=== PATIENT | male | born 1990 | race Caucasian/White ===

== ENCOUNTER 2019-01-25 06:48 | Emergency (ER) | payer MEDICARE, MEDICAID, SELFPAY ==
[2019-01-25 06:52] VITALS: BP 129/83; PULSE 80; RESP 16; TEMP 37.1; O2SAT 97; BMI 24.0
--- NOTE | 2019-01-25 07:22 | ED.VIS.GEN ---
History of Present Illness Chief Complaint: General Illness Informant: Patient Onset: Days - 3 Current Severity: Moderate Maximum Severity: Moderate Narrative: Patient presents with sore throat, upper airway congestion, cough and difficulty swallowing, he feels like there is a lump in his throat when he tries to swallow. He denies any fever or chills his cough is frequent but nonproductive he has no shortness of breath, he admits to rhinorrhea but no ear pain. Past Medical History - Allergies and Home Meds Allergies/Adverse Reactions: Allergies Sulfa (Sulfonamide Antibiotics) Allergy (Verified 01/25/19 06:49) Unknown morphine Adverse Reaction (Verified 01/25/19 06:49) Hives Primary Care Physician: Care Physician,No Primary [Primary Care Provider] - Past Medical History: - - Left foot, on disability for this Surgical History: tonsillectomy, - - Right foot surgery for club foot, eustachian tubes Smoking Status: Never smoker - Family History Paternal Family History: Reports: No pertinent history Maternal Family History: Reports: No pertinent history Review of Systems All systems negative except as indicated General: Denies: Fever Eyes: Denies: Visual changes - bilaterally ENT: Reports: Rhinorrhea, Sore throat, - - As in HPI. Denies: Bilateral ear pain Cardiovascular: Denies: Chest pain Respiratory: Reports: Cough. Denies: Dyspnea, Sputum Gastrointestinal: Denies: Nausea, Vomiting Musculoskeletal: Denies: Myalgias, Arthralgias Neurological: Denies: Headache Psych: Denies: Depression Physical Exam Vital Signs/Narrative: Vital Signs Temp Pulse Resp BP Pulse Ox 01/25/19 06:52 98.7 F 80 16 129/83 H 97 General: Well nourished, Well developed, - - He appears in slight distress Head: Normocephalic ENT: - - He has upper airway congestion and rhinorrhea. His tonsils have been removed, he has an edematous uvula consistent with uvulitis, no exudates. Neck: Supple, No lymphadenopathy Cardiovascular: Regular rate Respiratory: No distress Abdomen: Soft, Nontender Back: Nontender, Normal Inspection Extremities: Nontender, No edema Skin: Normal color, No rash Diagnostic/Tx/Re-eval - Medical Decision Making Centor score is 0. Patient has obvious uvulitis I will treat him with steroids and decongestants. Otherwise I will discharge him in stable condition. ED Disposition - Plan for ED Patient: Disposition: Home or Assisted Living Diagnosis: Uvulitis Instructions: Uvulitis Prescriptions: Guaifenesin [Mucinex] 600 mg PO BID #20 tab.er.12h Prescription Printed Referrals: Hudson Mckay [[facility]] - 3-5 Days (3)
[2019-01-25] MEDS: Triamcinolone Acetonide 40 MG/ML Vial IM (07:33)
[2019-01-25 07:51] VITALS: BP 139/84; PULSE 85; RESP 16; O2SAT 97
== END 2019-01-25 07:52 | disposition home or self-care (01) ==
PROVIDERS: Emergency Provider Emergency Medicine
DX: K12.2 Cellulitis and abscess of mouth (principal)
CPT/HCPCS: 96372; 99282

== ENCOUNTER 2020-02-05 00:18 | Emergency (ER) | payer MEDICARE, MEDICAID, SELFPAY ==
[2020-02-05 00:19] VITALS: BP 134/81; PULSE 104; RESP 18; TEMP 36.4; O2SAT 95; BMI 25.5
--- NOTE | 2020-02-05 00:33 | RAD_ITS ---
STUDY: X-RAY CHEST REASON FOR EXAM: Male, 29 years old. COUGH AND SOB TECHNIQUE: Single AP portable view of the chest. COMPARISON: 05/10/2013. FINDINGS: The lungs are clear and expanded. There is no demonstrated pleural abnormality. Normal size heart. Normal mediastinum and mary ann. Normal visualized pulmonary arteries. Normal visualized aortic arch and descending thoracic aorta. Normal visualized thoracic spine. Normal visualized ribs, clavicles, and shoulders. Stimulator leads in place demonstrated. There is no demonstrated abnormality of the visualized soft tissue structures of the upper abdomen. RAD/Chest 1 View (Portable) IMPRESSION: Normal x-ray examination of the chest. Electronically Signed: Maria R Contreras MD at 1:31 EST , Service support ,
--- NOTE | 2020-02-05 00:34 | ED.VIS.GEN ---
History of Present Illness Chief Complaint: Cough Informant: Patient Narrative: Patient states that for the past 3 days he has developed a cough with greenish sputum production. He tells me that he has developed some shortness of breath. He coughs with deep inspiration. No fevers. No myalgias. No diarrhea. He states that he began to feel anxious at home and was not able to sleep and wanted to be evaluated. No history of asthma or COPD. - Past Medical History (1) Postop right foot surgery for club foot Status: Chronic Past Medical History - Allergies and Home Meds Allergies/Adverse Reactions: Allergies Sulfa (Sulfonamide Antibiotics) Allergy (Verified 02/05/20 00:22) Unknown morphine Adverse Reaction (Verified 02/05/20 00:22) Hives Past Medical History: - - Anxiety Surgical History: tonsillectomy, - - Right foot surgery for club foot, eustachian tubes Smoking Status: Current every day smoker Drugs: - - History of opiate addiction - Family History Paternal Family History: Reports: No pertinent history Maternal Family History: Reports: No pertinent history Review of Systems General: Denies: Chills, Fever, Sweats Eyes: Denies: Visual changes - bilaterally, Diplopia ENT: Denies: Rhinorrhea, Sore throat Cardiovascular: Denies: Chest pain, Palpitations Respiratory: Reports: Dyspnea, Cough, Sputum. Denies: Dyspnea on exertion Gastrointestinal: Denies: Abdominal pain, Nausea, Vomiting, Diarrhea, Melena, Hematochezia Genitourinary: Denies: Dysuria, Hematuria, Frequency Musculoskeletal: Denies: Back pain, Extremity Pain Skin: Denies: Rash, Wounds Neurological: Denies: Headache, Weakness, Numbness Physical Exam Vital Signs/Narrative: Vital Signs Temp Pulse Resp BP Pulse Ox 02/05/20 00:19 97.6 F L 104 H 18 134/81 H 95 Inital Vital Signs reviewed: Yes General: Well nourished, Well developed, No Acute Distress Head: Normocephalic, Atraumatic Eyes: Perrl, EOMI ENT: Moist mucous membranes, No rhinorrhea Neck: Supple, Nontender Cardiovascular: Regular rate, Regular rhythm, No murmurs Respiratory: No distress, Chest nontender, Wheezing - Expiratory wheeze., - - Patient is able to speak in full sentences. Abdomen: Soft, Nontender, Nondistended, Normal bowel sounds Back: Nontender, Normal Inspection Extremities: Nontender, No edema Skin: Normal color, No rash Neurological: Alert, Oriented x3, Cranial nerves II-XII grossly intact, Normal Strength, Normal Sensation Psychological: Normal affect, Normal Mood Diagnostic/Tx/Re-eval Clinical Impression(s) from Imaging Studies Chest X-Ray 02/05/20 00:33 IMPRESSION: Normal x-ray examination of the chest. Electronically Signed: Maria R Contreras MD at 1:31 EST , Service support , - Medical Decision Making Chest x-ray was obtained and I do not see any obvious infiltrates. Patient received 6 puffs of albuterol MDI with instruction on spacer use. Repeat lung auscultation shows the lungs to be improved both in aeration and wheezing. Patient feels better but is a little jittery. Begin a dose of prednisone here and a prescription for 4 more days. I think this is a bronchitis with bronchospasm. Covid test was obtained and will be sent. Patient is comfortable with our plan and will return if worsening. ED Disposition - Plan for ED Patient: Disposition: Home or Assisted Living Diagnosis: Bronchitis, Bronchospasm, acute Instructions: Acute Bronchitis, ED Wheezing Prescriptions: Prednisone [Deltasone] 60 mg PO DAILY #12 tab Prescription Printed
[2020-02-05] MEDS: INHALER, ASSIST DEVICES 1 EACH SPACER INHALATION (00:55)
[2020-02-05 01:31] VITALS: PULSE 110; O2SAT 98
[2020-02-05] MEDS: predniSONE 20 MG Tablet 60 MG PO (01:31)
== END 2020-02-05 01:31 | disposition home or self-care (01) ==
LOC: ED 01:24
PROVIDERS: Emergency Provider Emergency Medicine
DX: J40 Bronchitis, not specified as acute or chronic (principal); J98.01 Acute bronchospasm; F17.200 Nicotine dependence, unspecified, uncomplicated
CPT/HCPCS: 71045; 87635; 99282; U0003

== ENCOUNTER 2020-02-22 21:23 | Emergency (ER) | payer MEDICARE, MEDICAID, SELFPAY ==
[2020-02-22 21:23] VITALS: BP 131/81; PULSE 99; RESP 16; TEMP 35.8; O2SAT 98; BMI 25.9
--- NOTE | 2020-02-22 21:48 | RAD_ITS ---
STUDY: X-RAY - RIGHT TIBIA AND FIBULA REASON FOR EXAM: Male, 30 years old. R FOOT/HEEL PAIN AND SWELLING. HX OF MULTIPLE SURGERIES FOR CLUB FOOT. TECHNIQUE: 2 view(s) of the tibia and fibula were obtained. COMPARISON: None. FINDINGS: No apparent acute fracture. Mottled bony demineralization of the distal tib-fib. Heart were partially visible in the ankle and forefoot. Mild subcutaneous edema distally. RAD/Tibia & Fibula 2 Views IMPRESSION: No acute osseous that her malady. Electronically Signed: Tong Irwin, at 22:31 EST Tel , Service support ,
--- NOTE | 2020-02-22 21:49 | ED.VISSUMM ---
- ER Visit Summary Date of Service: 02/22/20 Chief Complaint: [Right foot pain] History of Present Illness: The patient is a 30 M [presents to the emergency department complaint of pain in his right foot for the last 2 weeks. He denies any injury. He said no recent travel or surgery. Patient complains of pain mostly in the heel that can goes up the leg to the back of the knee. Patient has history of clubfeet and has had multiple surgeries on the right foot. Patient states that he is easily prone to fractures in the foot. He denies any chest pain or shortness of breath. Denies any fevers or recent illness.] Complains of significant swelling to his right lower extremity from the ankle up to the knee. Physical Examination: [HEENT-PERRLA, EOMI. Cranial nerves II through XII grossly intact. TMs clear. Mucous membranes moist. No adenopathy. Cardiovascular-regular rate and rhythm without murmur or ectopy Lungs-clear to auscultation, chest wall stable without crepitus or subcu emphysema Abdomen-normoactive bowel sounds, soft, nontender, no rebound or rigidity, no peritoneal signs. Extremities-intact ?4, normal range of motion, normal pulses, atraumatic. Right foot-patient has multiple scars involving the foot from prior surgeries. No ecchymosis or bruising is noted. He had does have tenderness palpation of the heel. He is neurovascular intact with normal station normal cap refill. Patient has a positive Homans' sign on the right.] Test Results: [Duplex of the right lower extremity was obtained was negative for DVT. Patient had x-rays of the right foot which showed multiple screws and plates from prior surgeries with no evidence of new fractures and radiology in agreement. Patient also had x-rays of the right tib-fib which showed no fractures on my interpretation and radiology in agreement.] Emergency Department Course and Treatment: [Patient refused crutches. 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 Patient currently in pain management and will follow-up with his industrial spraypainter for further treatment.] Treatment Plan: [Follow up with podiatry] Disposition: [Discharged home in stable condition] Impression: [Right foot and leg pain-etiology uncertain] This note was generated with im3Dation software. It may contain incorrect words, spelling, and punctuation that were not noted in review of the chart prior to signing ED Disposition - Plan for ED Patient: Referrals: [facility],Out of [Primary Care Provider] -
--- NOTE | 2020-02-22 21:51 | US_ITS ---
STUDY: VENOUS DOPPLER ULTRASOUND - RIGHT LOWER EXTREMITY REASON FOR EXAM: Male, 30 years old. RT FOOT/ HEEL PAIN AND SWELLING TECHNIQUE: Grayscale compression, color and spectral Doppler sonography of the lower extremity venous system was performed bilaterally. COMPARISON: No relevant priors. FINDINGS: COMMON FEMORAL VEINS: Compressible with venous flow and augmentation. FEMORAL VEINS: Compressible with venous flow and augmentation. POPLITEAL VEINS: Compressible with venous flow and augmentation. CALF VEINS: Venous flow demonstrated in the imaged segments. US/Venous Duplex Imag/Limited/Uni IMPRESSION: No evidence of DVT. Electronically Signed: Tong Irwin, at 22:41 EST Tel , Service support ,
--- NOTE | 2020-02-22 22:10 | RAD_ITS ---
STUDY: X-RAY - RIGHT FOOT CLINICAL: Male, 30 years old. R FOOT/HEEL PAIN AND SWELLING. HX OF MULTIPLE SURGERIES FOR CLUB FOOT. TECHNIQUE: 3 view(s) of the foot. COMPARISON: 06/01/2015 radiographs. FINDINGS: No apparent acute fracture or osseous destruction. Status post hindfoot fusion with 3 intact orthopedic screws, and medial midfoot fusion with a medial plate secured with several intact screws, and fusion of the first MTP joint also with intact plate and screws. The medial midfoot fusion as been revised compared to prior and the MTP joint fusion is new. The third from distal midfoot fusion screw extends into the base of the third metatarsal. Lucency surrounding the tip of this screw suggests some loosening. A small screw fragment from the previous fusion is seen in the region of the middle cuneiform. Mild bony demineralization. Mild diffuse subcutaneous edema. RAD/Foot min 3 Views IMPRESSION: No acute osseous abnormality. Extensive postsurgical changes as above. Electronically Signed: Tong Irwin, at 22:36 EST Tel , Service support ,
--- NOTE | 2020-02-22 22:50 | ED.DEP ---
ED Disposition - Plan for ED Patient: Instructions: ED Foot Sprain Referrals: [facility] [Primary Care Provider] - 5-7 Days
[2020-02-22 22:53] VITALS: BP 122/71; PULSE 71; RESP 17; O2SAT 98
== END 2020-02-22 23:04 | disposition home or self-care (01) ==
LOC: ED 23:00
PROVIDERS: Emergency Provider Emergency Medicine
DX: M79.671 Pain in right foot (principal); M79.604 Pain in right leg; F17.200 Nicotine dependence, unspecified, uncomplicated
CPT/HCPCS: 73590; 73630; 93971; 99282

== ENCOUNTER 2020-08-29 20:37 | Emergency (ER) | payer MEDICARE, MEDICAID, SELFPAY ==
[2020-08-29 20:38] VITALS: BP 127/73; PULSE 61; RESP 18; TEMP 36; O2SAT 96; BMI 24.8
--- NOTE | 2020-08-29 20:48 | EDS_ITS ---
HPI History of Present Illness Chief Complaint: Abd Pain Narrative Narrative: Patient presents with 3 to 4-week history of epigastric pain with nausea, he had an episode of vomiting today. The pain does not radiate into his back. He has no lower abdominal pain he has no diarrhea or constipation. No recent fever or chills. The pain seems to be worse with eating. He tells me he has lost some weight in the past few weeks since he has decreased intake of food. [facility] Medical History (Updated 08/29/20 @ 22:[address] [facility] MD) Club foot Substance abuse Home Medications buprenorphine-naloxone 1 ea SL BID 02/05/20 [History Last Taken Unknown] melatonin 30 mg PO QHS 08/29/20 [History Last Taken Unknown] omeprazole 40 mg PO DAILY #14 cap 08/29/20 [Rx Last Taken Unknown] Allergy/AdvReac Type Severity Reaction Status Date / Time Sulfa (Sulfonamide Allergy Unknown Verified 08/29/20 20:39 Antibiotics) morphine AdvReac Hives Verified 08/29/20 20:39 Social History Smoking Status: Current every day smoker tobacco type: cigarettes ROS ROS ED ROS Narrative Past medical history: Reviewed Medications: Reviewed Social history: History of opiate abuse however he has not used opiates for the past 8 months. Review of systems: All systems negative except as indicated General: No fever Eyes: No visual changes ENT: No upper airway congestion, normal voice Neck: No neck pain Cardiovascular: No chest pain Respiratory: No shortness of breath or cough Gastrointestinal: Epigastric pain with nausea and vomiting as in HPI Genitourinary: No dysuria Musculoskeletal: Denies myalgias no difficulty with ambulation Skin: No rash Neurological: No memory loss, confusion or any focal weakness Psych: No recent behavioral changes Hematologic: No easy bleeding or easy bruising EXAM Physical Exam Narrative Exam Narrative: Physical exam General: Well nourished, Well developed, he appears comfortable in bed. Head: Normocephalic, Atraumatic Eyes: Conjunctiva not pale ENT: Moist mucous membranes Neck: Supple, Nontender, No lymphadenopathy Cardiovascular: Regular rate, Regular rhythm Respiratory: No distress, CTA bilaterally Abdomen: Soft, there is epigastric tenderness to palpation slight right upper quadrant pain but negative Zhong's. No lower abdominal pain no guarding or rebound. Back: Nontender, Normal Inspection. Negative for: CVA tenderness Extremities: Nontender, No edema Skin: Normal color, No rash Neurological: Alert, Normal Strength, Normal Sensation Psychological: Normal affect Const Vital Signs: 08/29/20 20:38 Temperature 96.8 F L Temperature Source Oral Pulse Rate 61 Respiratory Rate 18 Blood Pressure 127/73 H Blood Pressure Mean 91 Pulse Ox 96 Oxygen Delivery Method Room Air MDM MDM MDM Narrative Medical decision making narrative: Patient has a normal ED work-up. This is likely gastritis. I will treat as such I will refer to GI in case this does not improve. He will need endoscopy at that time. In the meantime I will treat with a PPI. Lab Data Labs: Laboratory Results - last 24 hr 08/29/20 08/29/20 20:50 20:50 WBC 4.5 RBC 5.48 Hgb 15.6 Hct 46.7 MCV 85.2 MCH 28.5 MCHC 33.4 RDW Std Deviation 38.5 RDW Coeff of Tate 12.4 Plt Count 164 MPV 12.0 Immature Gran % (Auto) 0.000 Neut % (Auto) 41.0 L Lymph % (Auto) 46.3 H Pettis % (Auto) 10.7 H Eos % (Auto) 1.6 Baso % (Auto) 0.4 Absolute Neuts (auto) 1.8 L Absolute Lymphs (auto) 2.08 Nucleated RBC % 0 Sodium 141 Potassium 3.5 Chloride 105 Carbon Dioxide 32.0 Anion Gap 4 L BUN 12 Creatinine 0.94 Estim Creat Clear Calc 122.38 Est GFR (MDRD) Af Amer 120 Est GFR (MDRD) Non-Af 99 BUN/Creatinine Ratio 12.7 Glucose 81 Calcium 8.8 Total Bilirubin 0.30 AST 14 L ALT 25 Alkaline Phosphatase 95 Total Protein 7.5 Albumin 4.2 Globulin 3.3 Albumin/Globulin Ratio 1.3 Lipase 43 L Discharge Plan Triage Chief Complaint: Abd Pain ED Provider: [facility] Dx/Rx/DC Orders Clinical Impression: Gastritis Instructions: ED Gastritis (Adult) Prescriptions: New omeprazole 40 mg capsule,delayed release(DR/EC) 40 mg PO DAILY Qty: 14 RF: 0 No Action buprenorphine-naloxone 1 EACH film 1 ea SL BID RF: 0 melatonin 10 mg Tablet 30 mg PO QHS RF: 0 Primary Care Provider: Care Physician,No Primary Referrals: Care Physician,No Primary [Primary Care Provider] - Fabrice Corona MD [NON-STAFF] - 3-5 Days Disposition Disposition: Home, self care
[2020-08-29] MEDS: Ondansetron 4 MG/2 ML Vial IV (20:54)
[2020-08-29] MEDS: 0.9% Normal Saline 1,000 ML 125 ML IV (20:54)
[2020-08-29] MEDS: Famotidine 200 MG/20 ML MDV 20 MG in 0.9% Normal Saline (Pres. free 8 ML 300 MG IV (20:54)
[2020-08-29 21:09] LABS: Absolute Lymphocyte Count 2.08 X10^3/uL (0.83-4.51); Absolute Neutrophil Count 1.8 X10^3/uL (2.0-7.7); Basophil# 0.02 X10^3/uL; Basophil% 0.4 % (0-1); Eosinophil# 0.07 X10^3/uL; Eosinophils% 1.6 % (0-5); Hematocrit 46.7 % (40-54); Hemoglobin 15.6 g/dL (13.0-16.5); Lymphocyte # 2.08 X10^3/ul (0.83-4.51); Lymphocyte % 46.3 % (19-41); Mean Corp Hgb Conc 33.4 g/dL (32-36); Mean Corpuscular Hgb 28.5 pg (27.0-32.0); Mean Corpuscular Volume 85.2 fL (80-94); Monocyte# 0.48 X10^3/uL; Monocyte% 10.7 % (0-10); NRBC Flagged by Analyzer 0 % (0-5); Neutrophil # 1.84 X10^3/uL (2.7-7.7); Platelet Count 164 K/mm3 (150-450); RBC Distribution Width CV 12.4 % (11.6-14.6); RBC Distribution Width SD 38.5 fl (35.1-43.9); Red Blood Count 5.48 M/mm3 (4.6-6.2); White Blood Count 4.5 K/mm3 (4.4-11.0)
[2020-08-29 21:20] LABS: ALB/GLOB Ratio 1.3 RATIO (0.9-2.4); AST(SGOT) 14 U/L (15-37); Alanine Aminotransfer ALT/SGPT 25 U/L (16-61); Albumin, Serum 4.2 g/dL (3.2-5.0); Alkaline Phosphatase 95 U/L (45-117); Anion Gap 4 (5-15); BUN 12 mg/dL (7-18); BUN/Creat Ratio 12.7 RATIO (10-20); Calcium,Total 8.8 mg/dL (8.5-10.1); Chloride 105 mmol/L (98-107); Creatinine, Serum 0.94 mg/dL (0.70-1.30); EST Glomerular Filtration Rate 99 mL/min (>60); Est Glom Filt Rate - Afr Amer 120 mL/min (>60); Estimated Creatinine Clearance 122.38 ml/min; Globulin 3.3 g/dL (2.2-4.2); Glucose 81 mg/dL (74-106); Lipase 43 U/L (73-393); Potassium 3.5 mmol/L (3.5-5.1); Protein, Total 7.5 g/dL (6.4-8.2); Sodium Level 141 mmol/L (136-145)
== END 2020-08-29 22:58 | disposition home or self-care (01) ==
PROVIDERS: Emergency Provider Emergency Medicine
DX: K29.70 Gastritis, unspecified, without bleeding (principal); F17.210 Nicotine dependence, cigarettes, uncomplicated; Z79.899 Other long term (current) drug therapy
CPT/HCPCS: 80053; 83690; 85025; 96361; 96374; 99283; J7030; A4216; J2405; J3490

== ENCOUNTER → 2020-11-20 20:50 | Outpatient (CLI) | payer MEDICARE, SELFPAY | PROVIDERS: Visit Provider Physician Assistant Surgical | DX: Z20.822 Contact with and (suspected) exposure to COVID-19 (principal) | CPT/HCPCS: 87635; U0005; U0003 ==

== ENCOUNTER → 2021-01-11 13:01 | Outpatient (CLI) | payer MEDICARE, MEDICAID, SELFPAY ==
[2021-01-11 15:44] LABS: Cholesterol 216 mg/dL (200); High Density Lipoprotein 36 mg/dL; Magnesium 1.9 mg/dL (1.6-2.6); Thyroid Stim Hormone (TSH) 1.38 uIU/mL (0.358-3.74); Triglycerides 91 mg/dL; Very Low Density Lipoprotein 18 mg/dL (5-40)
[2021-01-11 16:12] LABS: Hepatitis C Antibody Non-Reactive (Nonreactive); Vitamin D,25 Hydroxy 27.3 ng/mL
== END ==
PROVIDERS: PCP Internal Medicine; Referring Provider Internal Medicine; Visit Provider Internal Medicine
DX: F19.11 Other psychoactive substance abuse, in remission (principal); E55.9 Vitamin D deficiency, unspecified; F32.9 Major depressive disorder, single episode, unspecified; F41.9 Anxiety disorder, unspecified; Z13.220 Encounter for screening for lipoid disorders; Z79.899 Other long term (current) drug therapy
CPT/HCPCS: 36415; 80061; 82306; 83735; 84443; 86803

== ENCOUNTER 2021-04-29 11:31 | Outpatient (CLI) | payer MEDICARE, MEDICAID, SELFPAY ==
[2021-04-29 13:46] LABS: Erythrocyte Sedimentation Rate 3 mm/hr (0-20)
[2021-04-29 13:48] LABS: Absolute Lymphocyte Count 1.98 X10^3/uL (0.83-4.51); Absolute Neutrophil Count 2.4 X10^3/uL (2.0-7.7); Basophil# 0.05 X10^3/uL; Eosinophil# 0.35 X10^3/uL; Eosinophils% 6.7 % (0-5); Hematocrit 43.3 % (40-54); Hemoglobin 14.7 g/dL (13.0-16.5); Lymphocyte # 1.98 X10^3/ul (0.83-4.51); Lymphocyte % 37.9 % (19-41); Mean Corp Hgb Conc 33.9 g/dL (32-36); Mean Corpuscular Hgb 28.5 pg (27.0-32.0); Mean Corpuscular Volume 84.1 fL (80-94); Mean Platelet Vol. 11.7 fl (6.2-12.0); Monocyte# 0.47 X10^3/uL; NRBC Flagged by Analyzer 0 % (0-5); Neutrophil # 2.36 X10^3/uL (2.7-7.7); Neutrophil % 45.2 % (47-70); Platelet Count 203 K/mm3 (150-450); RBC Distribution Width CV 12.6 % (11.6-14.6); RBC Distribution Width SD 38.4 fl (35.1-43.9); Red Blood Count 5.15 M/mm3 (4.6-6.2); White Blood Count 5.2 K/mm3 (4.4-11.0)
[2021-04-29 14:35] LABS: ALB/GLOB Ratio 1.4 RATIO (0.9-2.4); AST(SGOT) 14 U/L (15-37); Alanine Aminotransfer ALT/SGPT 15 U/L (16-61); Albumin, Serum 4.3 g/dL (3.2-5.0); Alkaline Phosphatase 72 U/L (45-117); Anion Gap 8 (5-15); BUN 9 mg/dL (7-18); BUN/Creat Ratio 10.2 RATIO (10-20); CRP < 2.90 mg/L (0.0-3.0); Calcium,Total 9.4 mg/dL (8.5-10.1); Chloride 104 mmol/L (98-107); Creatinine, Serum 0.88 mg/dL (0.70-1.30); EST Glomerular Filtration Rate 107 mL/min (>60); Est Glom Filt Rate - Afr Amer 130 mL/min (>60); Glucose 94 mg/dL (74-106); Potassium 4.2 mmol/L (3.5-5.1); Protein, Total 7.3 g/dL (6.4-8.2); Sodium Level 139 mmol/L (136-145)
[2021-05-01 12:09] LABS: Anti-Centromere B Ab <0.2 AI (0.0-0.9); Anti-Chromatin <0.2 AI (0.0-0.9); Anti-Jo <0.2 AI (0.0-0.9); Anti-Scleroderma-70 AB <0.2 AI (0.0-0.9); RNP Ab <0.2 AI (0.0-0.9); SJOGREN'S Anti-SS-A test < 0.2 AI (0.0-0.9); SJOGREN'S Anti-SS-B test < 0.2 AI (0.0-0.9); Smith Ab <0.2 AI (0.0-0.9)
[2021-05-01 13:20] LABS: Anti-dsDNA Ab 2 IU/mL (0-9)
[2021-05-04 17:07] LABS: Cytoplasmic Ab (C-ANCA) <1:20 titer (Neg:<1:20); Endomysial Antibody IgA Negative (Negative); Immunoglobulin A 223 mg/dL (90-386); Immunoglobulin E 27 IU/mL (6-495); Immunoglobulin G 923 mg/dL (603-1613)
[2021-05-05 08:32] LABS: Immunoglobulin M 101 mg/dL (20-172); Perinuclear Ab (P-ANCA) <1:20 titer (Neg:<1:20); t-Transglutaminase IgA <2 U/mL (0-3)
== END 2021-04-29 23:59 | disposition home or self-care (01) ==
PROVIDERS: Referring Provider Internal Medicine Gastroenterology; Visit Provider Internal Medicine Gastroenterology
DX: R63.4 Abnormal weight loss (principal); E16.2 Hypoglycemia, unspecified; K21.9 Gastro-esophageal reflux disease without esophagitis
CPT/HCPCS: 36415; 80053; 82784; 82785; 83516; 85025; 85652; 86140; 86225; 86235; 86255; 86256

== ENCOUNTER 2021-06-11 07:46 | Outpatient (CLI) | payer MEDICARE, MEDICAID, SELFPAY ==
--- NOTE | 2021-06-11 07:48 | US_ITS ---
STUDY: ABDOMINAL ULTRASOUND REASON FOR EXAM: Male, 31 years old. Abdominal pain- Mid -- N/V X 1 YEAR -- WEIGHT LOSS TECHNIQUE: Transabdominal ultrasound was performed with real-time and static rogel scale imaging. TECHNICAL QUALITY: Adequate. COMPARISON: None. FINDINGS: Liver: The liver measures 15.4 cm. There is normal echogenicity of the liver. The bile ducts are within normal limits. There is hepatic color flow. The direction of portal flow is hepatopetal. There is no demonstrated mass lesion. Gallbladder: Normal distended gallbladder. The gallbladder wall measures 2.4 mm. There is a positive sonographic Zhong''s sign. There is no pericholecystic fluid. There are multiple echogenic structures within the gallbladder, consistent with multiple gallstones. Common Bile Duct (C.B.D.): The common bile duct measures 3.7 mm. Pancreas: Normal size of the head, body and tail of the pancreas. There is normal echogenicity of the pancreas. There is no demonstrated pancreatic mass or cyst. Spleen: There is mild splenomegaly. The spleen measures 12.4 cm x 5.2 cm x 4.7 cm. Right Kidney: Normal size of the right kidney. The right kidney measures 9.7 cm x 5.1 cm x 6 cm. Normal renal cortex. The right cortex measures 1.9 cm. There is no demonstrated renal mass or cyst. There is no right hydronephrosis. Left Kidney: Normal size of the left kidney. The left kidney measures 9.7 cm x 5 cm x 4.9 cm. Normal renal cortex. The left cortex measures 1.8 cm. There is no demonstrated renal mass or cyst. There is no left hydronephrosis. Aorta: Unremarkable I.V.C.: The IVC is patent. There is no ascites. US/Abdomen Complete IMPRESSION: Multiple gallstones. Mild tenderness overlying the gallbladder region. Mild splenomegaly. Electronically Signed: Lux Flannery MD at 12:44 EDT ,
== END 2021-06-11 23:59 | disposition home or self-care (01) ==
LOC: US 07:46
PROVIDERS: Referring Provider Internal Medicine Gastroenterology; Visit Provider Internal Medicine Gastroenterology
DX: R63.4 Abnormal weight loss (principal); R11.2 Nausea with vomiting, unspecified; K21.9 Gastro-esophageal reflux disease without esophagitis
CPT/HCPCS: 76700

== ENCOUNTER → 2021-07-15 | Outpatient (CLI) | payer MEDICARE, MEDICAID, SELFPAY ==
--- NOTE | 2021-07-15 11:48 | CT_ITS ---
INDICATION: abdominal pain EXAMINATION: CT ABDOMEN AND PELVIS WITH CONTRAST - CT Abdomen And Pelvis W/ Contrast Injection TECHNIQUE: Helically acquired images were obtained of the abdomen and pelvis following IV contrast. A radiation dose optimization technique was used for this scan. IV Contrast dosage and agent: 100 milliliters [id number] Oral contrast: Redicat COMPARISON: Abdomen ultrasound from 06/11/2021 FINDINGS: Lower thorax: Visualized lung bases are clear. Liver: Normal morphology. No masses. No acute findings. Gallbladder: Cholelithiasis. No CT findings of acute cholecystitis. No significant bile duct dilation. Spleen: No acute findings. Pancreas: No focal parenchymal lesions. No duct dilation. No acute findings. Adrenal glands: Unremarkable. Kidneys: No cystic or solid masses. No hydronephrosis. No acute findings. Bladder: Normal appearance. GI tract: No significant wall thickening or bowel dilation. Normal appendix. Oral contrast reaches the distal small bowel bowel with no findings to suggest obstruction. Peritoneum/mesentery/retroperitoneum: No free air or free fluid. No masses or lymphadenopathy. Pelvis: No free air or free fluid. No masses or lymphadenopathy. Vasculature: No acute findings. Bones/soft tissues: There is a spinal stimulator device in the right gluteal soft tissues with the lead terminating in the spinal canal at the level of T12. An additional spinal stimulator device in the left gluteal soft tissues with the lead ascending along the left paraspinal musculature into the thorax beyond the [id number]. No acute fracture or subluxation. No destructive osseous lesions. CT/Abdomen/Pelvis WITH Contrast IMPRESSION: 1. No acute findings. 2. Cholelithiasis without CT findings of acute cholecystitis. Electronically Signed: John Dukes, at 15:20 EDT ,
== END | disposition home or self-care (01) ==
LOC: CT 11:42
PROVIDERS: Referring Provider Internal Medicine Gastroenterology; Visit Provider Internal Medicine Gastroenterology
DX: R63.4 Abnormal weight loss (principal); R10.9 Unspecified abdominal pain
CPT/HCPCS: 74177; Q9967

== ENCOUNTER 2021-07-18 09:49 | Day surgery (SDC) | payer MEDICARE, MEDICAID, SELFPAY ==
[2021-07-18] VITALS (10 sets, daily range): BP systolic 94–114; BP diastolic 45–72; PULSE 43–60; RESP 14–18; TEMP 36.1–36.7; O2SAT 95–100; BMI 20.6
[2021-07-18] MEDS: Lactated Ringers 1,000 ML 15 ML IV (10:29)
--- NOTE | 2021-07-18 11:15 | IMM_PTH ---
PATIENT: CATRACHITA BARRY LOC: EN U#:[id number] AGE/SX: 31/M ROOM: RE07/18/[address]: Dr. Gunner Mckenzie MD : 1990 BED: DIS: 07/18/2021 SPEC #: [id number] RECD: 07/18/21 14:03 STATUS: OMA MOY #: [id number] EMMA: 07/18/21 11:[address]: Gunner Mckenzie DEPT: IMMUNOHISTOCHEMISTRY RECD BY: Fatou Panchal ENTERED: 07/18/21 14:03 SP TYPE: IMMUNO OTHR DR: No Primary Care Phys Tissues: Stomach, NOS Procedures: H Pylori (initial) PHYSICIAN & INSTITUTION [place] [id number] SPECIMEN INFORMATION: Tissue Source: Antrum biopsy Clinical Info: Nausea and vomiting Specimen Number: [id number] CPT code: 02659 METHODOLOGY: Deparaffinized sections of prefer/formalin-fixed tissue or PAP/DQ stained slides are incubated with monoclonal/polyclonal antibodies/oligonucleotide probes. Localization is made via biotin free immunoperoxidase method. Appropriate controls are performed and reacted as expected. Results on target cell population are indicated in the following table: RESULTS: ANTIBODY / CLONE RESULT H Pylori (polyclonal) negative These tests were developed and their performance characteristics determined by [facility]. They may not have been cleared or approved by the U.S. Food and Drug Administration. The FDA has determined that such clearance or approval is not necessary. INTERPRETATION: Antrum biopsy: Negative for Helicobacter pylori organisms. JUSTYN:lynn 07/19/2021
--- NOTE | 2021-07-18 11:15 | EGD_PTH ---
PATIENT: CATRACHITA BARRY LOC: EN U#:[id number] AGE/SX: 31/M ROOM: RE07/18/[address]: Dr. Gunner Mckenzie MD : 1990 BED: DIS: 07/18/2021 SPEC #: [id number] RECD: 07/18/21 13:13 STATUS: OMA MOY #: [id number] EMMA: 07/18/21 11:[address]: Gunner Mckenzie DEPT: SURGICAL PATHOLOGY RECD BY: Bhavya Engle ENTERED: 07/18/21 13:47 SP TYPE: EGD BIOPSY OTHR DR: No Primary Care Phys Tissues: Gastric mucous membrane Procedures: Surgery Specimen Level IV HEADER OPERATION: EGD with biopsy ([facility]) PRE-OP DIAGNOSIS: Nausea and vomiting TISSUE SUBMITTED: Antrum for H. pylori and path MICROSCOPIC DIAGNOSIS Antrum, biopsy: Mild gastritis. See microscopic description and comment. /SJ 07/19/2021 COMMENT The results of immunohistochemistry for Helicobacter pylori will be reported separately ([id number]). MICROSCOPIC DESCRIPTION Slides are reviewed. The specimen shows fragments of gastric mucosa with chronic inflammatory cell infiltrates in the lamina propria consisting of lymphocytes and plasma cells, consistent with mild chronic gastritis. GROSS DESCRIPTION Received is one container labeled with the patient name and designated antrum biopsy. The specimen consists of one irregular fragment of light pepe soft tissue that measures 0.6 x 0.4 x 0.1 cm. The specimen is totally submitted in one cassette. /SJ 07/19/21 TC:3 CPT: 62797
--- NOTE | 2021-07-18 11:35 | HP.PCM_ITS ---
History and Physical Date of Admission: 07/18/21 Date of Service: 07/04/21 MR#:[id number]:[id number]: CATRACHITA BARRYRep #:[id number] Provider:Tyrone Cruz/Sex: 31/M [facility] Intake Vital Signs 07/04/21 14:47 Height 5 ft 10 in Weight: 140 lb 2 oz BMI 20.0 BP 146/97 H Blood Pressure Location Lt brachial Position Sitting Respiration 18 Pulse 72 Pulse Source NIBP Temp 98.1 F Temp Source Temporal Pulse Oximetry (%) 100 Oxygen Delivery Method room air Intake Visit Reasons: GALLSTONES Chief Complaint: gallstones, nausea Health And Safety Technician Required: No Is patient in pain?: No Allergies Sulfa (Sulfonamide Antibiotics) Allergy (Verified 04/29/21 10:34) Unknown morphine Adverse Reaction (Verified 04/29/21 10:34) Hives Medications buprenorphine 8 mg-naloxone 2 mg sublingual film 1 film SUBLINGUAL BID ea 11/23/20 [History Confirmed 07/04/21] famotidine 10 mg tablet 10 mg PO DAILY 11/23/20 [History Confirmed 07/04/21] melatonin 10 mg tablet 20 mg PO QHS tab 11/23/20 [History Confirmed 07/04/21] omeprazole 40 mg capsule,delayed release 40 mg PO DAILY #90 cap 11/23/20 [Rx Confirmed 07/04/21] metoclopramide HCl 5 mg tablet 5 mg PO QACHS #30 tab 06/10/21 [Rx Confirmed 07/04/21] scopolamine base 1 mg over 3 days transdermal patch 1 patch TRANSDERMAL Q3D PRN #10 ea 06/10/21 [Rx Confirmed 07/04/21] promethazine 25 mg rectal suppository 25 mg IA Q6H PRN #12 ea 07/01/21 [Rx Confirmed 07/04/21] PFSH Medical History Anxiety and depression Club foot GERD (gastroesophageal reflux disease) History of substance abuse Hypoglycemia Insomnia Nausea and vomiting Neuropathy Substance abuse Weight loss Surgical History Club foot History of back surgery Family History Other Anxiety Arthritis Breast cancer Cancer Depression Hypertension Mental disorder Myocardial infarction Skin cancer Social History Smoking Status: Current every day smoker tobacco type: cigarettes counseling given: provider counseling alcohol intake: never substance use type: marijuana what type of physical activity do you participate in: none HPI HPI HPI: CATRACHITA BARRY, is a 31 M who presents to the office today for who presents with gallstones. They are referred for surgical consultation from gastroenterology. Patient's primary complaint is significant nausea that is been present for the last year. Pain is described as secondary and only occurs 3 to 4 days after not being able to eat due to the nausea. Mr. Barry reports that the nausea for started when he got into the car heading to the gym. He stopped for some Gatorade and was overcome by nausea which led to him throwing up in the car. He stated this nausea and vomiting lasted for 2 to 3 weeks?during which time he was evaluated in the ER. Labs were drawn for work-up and all returned normal. He was placed on some acid reflux medication without relief of his symptoms. As he began to feel spontaneously better he started to eat again, however, he developed more vomiting. With return of vomiting, he was seen by another provider in [facility] and was ordered a hepatitis panel which returned normal and he was told this was likely secondary to his smoking habit and no further work-up was indicated. Patient states that he did stop smoking tobacco at this time (he still smokes marijuana as this is the only thing that act as an appetite stimulant). Frustrated with his lack of relief when smoking cessation did not improve his nausea/vomiting symptoms he sought evaluation with gastroenterology. He states he was placed on a patch for his nausea, but this too failed to bring about relief of his symptoms. 6 weeks later he followed up with Dr. Pope again and CT scan was ordered. Unfortunately, insurance declined this order and a ultrasound was performed as a surrogate. Abdominal ultrasound found evidence of gallstones in this occasions the patient's referral here. Patient states that his last vomiting episode was 2 days ago after he had just finished some homemade baked ziti. He states once this vomiting starts he is not able to eat or drink anything. The vomiting has lasted 1.5 months at its l ongest. The cumulative effect of these symptoms have caused significant unintentional weight loss?he estimates last year he weighed 210 pounds and now weighs 140 pounds. He states that he was not overweight at that time either and was actively going to the gym. He is very frustrated with his lack of progress. Patient describes his nausea occurs primarily in the early mornings and the evenings. When he vomits it tends to be the foodstuff that he just ingested. He describes 1 episode where he consumed some hard boiled eggs in the morning and 12 hours later experienced vomiting of the eggs in their original form. He states that the nausea somewhat improved with lying flat on his back. Despite being told that he has reflux, he states that he is never had heartburn or reflux. He denies any history of bloating. Patient's bowel movements usually occur 1 time daily but are small and hard in consistency. He denies any straining, but states that he will sometimes take 20 to 30 minutes to have a bowel movement. His usual toilet time is 5 to 10 minutes and coffee ask as a stimulant. Patient has a history of opiate dependence/addiction. He describes a history of 3 years of back surgeries and placement of 2 spinal stimulators. In an effort to wean himself from the narcotics, he did receive a prescription for medical marijuana and now his dose of Suboxone twice daily where he has held accountable to regular urine drug screens. He has a history of neuropathy, but this diagnosis was given amidst his above back surgeries. He denies any history of GI symptoms as a child. He denies any significant GI diagnoses in his family history. Previous work-up has included: Abdominal ultrasound on 06/11/2021 which showed a distended gallbladder, 2.4 mm wall thickness, positive Zhong sign, CBD diameter of 3.7 mm, and there is no pericholecystic fluid noted. ROS General General: Yes weight change; No appetite, fatigue, colon cancer, breast cancer or weakness HEENT HEENT: No difficulty swallowing, eye injury, eye surgery, swollen glands or hoarseness Endo Endocrine: No thyroid disease, diabetes mellitus, thyroid cancer, Hair loss, heat intolerance or cold intolerance Musc Musculoskeletal: Yes back problems and arthritis; No rheumatoid arthritis, gout or joint pain Cardio Cardiovascular: No murmur, pacemaker, heart disease, atrial fibrillation, high blood pressure, heart attack, heart stent, palpitations, shortness of breat with exertion or chest pain Psych Psychiatric: No depression, anxiety or hearing voices Resp Respiratory: No shortness of breath, No sleep apnea, No cough, No COPD, No asthma, No emphysema and No wheezing Gastro Gastrointestinal: Yes abdominal pain, Yes nausea or vomiting, No diarrhea, No constipation, No blood in stool, No acid reflux, No hemorrhoids, No ulcers, No gallbladder problem and No black,tarry stools Josh Hematologic: No blood thinners, No blood disorders, No bleeding, No anemia and No blood clots Neuro Neurologic: No weakness Exam Const General: cooperative, comfortable and no acute distress Orientation: alert, awake and oriented x3 Resp Effort & Inspection: normal respiratory effort and no cough Auscultation: clear to auscultation bilaterally, no rales, no rhonchi and no wheezes Cardio Rate: regular rate Rhythm: regular rhythm Heart Sounds: S1 normal and S2 normal GI Inspection: non-distended and no scars Palpation: soft and tender in the RLQ (This is the worst quadrant regarding tenderness with palpation), in the LUQ, in the RUQ and Zhong's sign positive (Initially present but not reproducible) Assessment and Plan Assessment and Plan (1) Nausea and vomiting: Status: Acute Comment: This is a 31-year-old male whose primary complaint is intractable nausea and vomiting for the last 1 year. This is resulted in significant weight loss (estimated at 70 or 80 pounds). This seems to be primarily postprandial, but symptoms prevent the patient from eating or drinking. To date, patient underwent lab evaluation and ultrasound imaging. Laboratories have remained within normal limits?including hep C panel. Abdominal ultrasound demonstrated evidence of cholelithiasis and there was a positive Zhong sign noted, but no other evidence of cholecystitis. Patient denies pain as a primary complaint and states this only becomes apparent 3 to 4 days after his nausea and vomiting has returned. I am unconvinced at this time the patient's symptoms are primarily due to a gallbladder etiology. Based on the intrusiveness of the symptoms and the patient's significant weight loss, we should proceed for EGD in rather short order. With this study I would like to establish that he has normal anatomy and also will empirically obtain H. pylori random biopsies. If this exam and resultant pathology are normal, I would plan to proceed with gastric emptying study and possible HIDA imaging to evaluate for gastroparesis and biliary dyskinesia, respectively. Orders: Orders: EGD Today Plan - Dr. Gunner Mckenzie MD: EGD under local MAC with empiric H pylori biopsies (and others as needed/indicated). Procedure was described in detail and patient informed that he will require a screw driver operator the day of the procedure given the sedation to be used. (2) Weight loss: Status: Acute Orders: Orders: EGD Today I have examined the patient the following changes are noted: Patient states that he has not had any further vomiting episodes since her consultation visit on 07/04/2021. He has been eating primarily plant-based foods. He does still take a Phenergan suppository once daily. He also comments that he had a pulsatile sharp abdominal pain in his right upper quadrant today. On 07/15/[address] of the abdomen and pelvis with only findings of cholelithiasis?wh ich was known from his prior ultrasound exam. He offers no further questions regarding today's procedure and therefore we will proceed with EGD under local MAC and biopsies for H. pylori (as well as any other indicated).
--- NOTE | 2021-07-18 12:03 | OP.CCLET_ITS ---
07/18/2021 No Primary Care Physician Re : [facility] This procedure was performed on June. My impressions and recommendations are as follows: Impressions : - Normal first portion of the duodenum and second portion of the duodenum. No specimens collected. - Small hiatal hernia. No specimens collected. - Z-line regular, 38 cm from the incisors. No specimens collected. - Normal esophagus. - Normal stomach. - Normal examined duodenum. - Normal mucosa was found in the entire stomach. Biopsied. Recommendations : - Discharge patient to home (via wheelchair). - Resume previous diet today. - Continue present medications. - Await pathology results. - Telephone my office for pathology results in 1 week. My findings are described in the full procedure note, which is enclosed. If I can be of further assistance, please feel free to contact me at Doctor phone number(s): , Work: . Sincerely, Gunner Mckenzie MD 07/18/2021 12:03:17 PM This report has been signed electronically.
--- NOTE | 2021-07-18 12:03 | OP.EGD_ITS ---
Patient Name: Hema Fletcher Procedure Date: 07/18/2021 11:27 AM Date of : 1990 Age: 31 Procedure: Upper GI endoscopy Indications: Epigastric abdominal pain, Helicobacter pylori status not known, Nausea with vomiting, Weight loss Providers: Gunner Mckenzie MD Medicines: See the Anesthesia note for documentation of the administered medications Patient Profile: Refer to note in patient chart for documentation of history and physical. Patient has symptoms of chronic epigastric abdominal pain, chronic nausea and chronic vomiting. Complications: No immediate complications. Estimated blood loss: Minimal. Procedure: Pre-Anesthesia Assessment: - The heart rate, respiratory rate, oxygen saturations, blood pressure, adequacy of pulmonary ventilation, and response to care were monitored throughout the procedure. After obtaining informed consent, the endoscope was passed under direct vision. Throughout the procedure, the patient's blood pressure, pulse, and oxygen saturations were monitored continuously. The gastroscope was introduced through the mouth, and advanced to the second part of duodenum. The upper GI endoscopy was accomplished without difficulty. The patient tolerated the procedure fairly well. Scope In: 11:40:40 AM Scope Out: 11:54:50 AM Total Procedure Duration Time 0 hours 14 minutes 10 seconds Findings: The first portion of the duodenum and second portion of the duodenum were normal. No biopsies or other specimens were collected for this exam. A small hiatal hernia was present. No biopsies or other specimens were collected for this exam. The Z-line was regular and was found 38 cm from the incisors. No biopsies or other specimens were collected for this exam. The esophagus was normal. The stomach was normal. The examined duodenum was normal. Normal mucosa was found in the entire examined stomach. Biopsies were taken with a cold forceps for Helicobacter pylori cultures. Estimated blood loss was minimal. Impression: - Normal first portion of the duodenum and second portion of the duodenum. No specimens collected. - Small hiatal hernia. No specimens collected. - Z-line regular, 38 cm from the incisors. No specimens collected. - Normal esophagus. - Normal stomach. - Normal examined duodenum. - Normal mucosa was found in the entire stomach. Biopsied. Recommendation: - Discharge patient to home (via wheelchair). - Resume previous diet today. - Continue present medications. - Await pathology results. - Telephone my office for pathology results in 1 week. Procedure Code(s): --- Professional --- 87771, Esophagogastroduodenoscopy, flexible, transoral; with biopsy, single or multiple Diagnosis Code(s): --- Professional --- K44.9, Diaphragmatic hernia without obstruction or gangrene R10.13, Epigastric pain R11.2, Nausea with vomiting, unspecified R63.4, Abnormal weight loss CPT copyright 2017 [employer]. All rights reserved. The codes documented in this report are preliminary and upon senior developer review may be revised to meet current compliance requirements. Gunner Mckenzie MD 07/18/2021 12:03:17 PM This report has been signed electronically. Number of Addenda: 0 Note Initiated On: 07/18/2021 11:27 AM
== END 2021-07-18 13:19 | disposition home or self-care (01) ==
LOC: EN 09:50 → AC 09:51
PROVIDERS: Referring Provider Surgery; Visit Provider Surgery
PROC: 0DJ08ZZ Inspection of Upper Intestinal Tract, Via Natural or Artificial Opening Endoscopic (ICD-10-PCS; CPT 43235; principal; 2021-07-18 11:10)
DX: K29.50 Unspecified chronic gastritis without bleeding (principal); F12.90 Cannabis use, unspecified, uncomplicated; K44.9 Diaphragmatic hernia without obstruction or gangrene; F17.210 Nicotine dependence, cigarettes, uncomplicated; R63.4 Abnormal weight loss; F32.A Depression, unspecified; F41.9 Anxiety disorder, unspecified; Z68.20 Body mass index [BMI] 20.0-20.9, adult; Z79.899 Other long term (current) drug therapy
CPT/HCPCS: 43239; 88305; 88342; J7120; J2405

== ENCOUNTER → 2021-08-06 | Outpatient (CLI) | payer MEDICARE, MEDICAID, SELFPAY ==
--- NOTE | 2021-08-06 12:27 | NM_ITS ---
CLINICAL: 31-year-old male with hiatal hernia and reflux GASTRIC EMPTYING-SULFUR COLLOID TECHNIQUE: The patient was orally administered 1.0 mCi of Tc-sulfur colloid in oatmeal. Gamma camera imaging acquisitions at 1-60 minutes post radiopharmaceutical administration was performed. COMPARISON STUDIES : NM - None. CR - Not available for review at this time. CT - 07/15/2021 MR - Not available for review at this time. FINDINGS: There is normal filling of the stomach. Gastroesophageal reflux documented on posterior imaging. T 1/2 calculated at 176 minutes, prolonged. Emptying curve is flattened with subjective stasis of isotope in the gastric fundus and body. NM/Gastric Emptying Study IMPRESSION: 1. Prolonged gastric emptying suggesting gastroparesis. 2. Gastroesophageal reflux. Electronically Signed: Renan Denton MD ([place]) at 8:17 EDT ,
== END | disposition home or self-care (01) ==
LOC: NM 12:26
PROVIDERS: Visit Provider Surgery
DX: K21.9 Gastro-esophageal reflux disease without esophagitis (principal); K44.9 Diaphragmatic hernia without obstruction or gangrene
CPT/HCPCS: 78264; A9541

== ENCOUNTER → 2021-09-19 | Outpatient (CLI) | payer MEDICARE, MEDICAID, SELFPAY ==
[2021-09-19 16:35] LABS: Amylase 38 U/L (25-115); LDH 163 U/L (87-241); Lipase 55 U/L (73-393)
[2021-09-26 18:25] LABS: Pancreatic Elastase, Fecal 287 (>200)
== END | disposition home or self-care (01) ==
LOC: LAB 15:05
PROVIDERS: Visit Provider Internal Medicine Gastroenterology
DX: R11.0 Nausea (principal); K29.70 Gastritis, unspecified, without bleeding
CPT/HCPCS: 36415; 82150; 82653; 83615; 83690

== ENCOUNTER → 2021-09-20 | Outpatient (CLI) | payer MEDICARE, MEDICAID, SELFPAY ==
[2021-09-25 12:25] LABS: Gastrin, Serum < 10 pg/mL (0-115)
== END | disposition home or self-care (01) ==
LOC: LAB 14:10
PROVIDERS: Referring Provider Internal Medicine Gastroenterology; Visit Provider Internal Medicine Gastroenterology
DX: R11.0 Nausea (principal)
CPT/HCPCS: 36415; 82653; 82941

== ENCOUNTER 2022-06-30 13:19 | Emergency (ER) | payer MEDICARE, MEDICAID, SELFPAY ==
[2022-06-30 13:22] VITALS: BP 147/78; PULSE 87; RESP 16; TEMP 37.1; O2SAT 99
--- NOTE | 2022-06-30 14:18 | ED.VIS.CHEST ---
HPI History of Present Illness Chief Complaint: Chest Pain Narrative Narrative: 32-year-old male presenting with chest pain. He states it started about 45 minutes ago. It was nontraumatic. He states it felt like somebody punched him into the left side of his chest. The pain was continuous. Patient states the pain was worse when driving to the hospital but it is improving now. He does not describe any shortness of breath or lightheadedness with this. Patient states he does not have any cardiac disease that he knows of. He reports no lung problems. He states he does vape nicotine. He is otherwise been physically healthy. He states that when he slightly abducts his left arm and internally rotates that he can reproduce the chest pain in his chest wall. He also reports that a couple of years ago he was told he had a full body spasm. He states that EMS was called and he came to the emergency room but it had resolved at that point. He states he had a negative work-up at that time. He does not believe that he could be dehydrated. Has been eating and drinking normally. Making normal urine and stool. [facility] Medical History Anxiety Anxiety and depression Back pain Club foot Depression Encounter for screening for COVID-19 Former smoker GERD (gastroesophageal reflux disease) History of edema History of substance abuse Hypoglycemia Injury of back Insomnia Marijuana use Migraine headache Nausea and vomiting Neuropathy Substance abuse Wears glasses Weight loss Home Medications buprenorphine 8 mg-naloxone 2 mg sublingual film (Suboxone) 1 film sublingual BID 11/23/20 [History Last Taken Unknown] promethazine 25 mg rectal suppository 25 mg NH Q6H PRN nausea and vomiting #12 ea 07/01/21 [Rx Last Taken Unknown] buspirone 15 mg tablet 15 mg PO TID 07/15/21 [History Last Taken Unknown] promethazine 25 mg tablet 25 mg PO TID PRN nausea #90 tabs 09/19/21 [Rx Last Taken Unknown] Suboxone 8 mg PO/SL BID 06/30/22 [History Last Taken Unknown] Allergy/AdvReac Type Severity Reaction Status Date / Time Sulfa (Sulfonamide Allergy Unknown Verified 07/18/21 10:20 Antibiotics) morphine AdvReac Hives Verified 07/18/21 10:20 Family History Other Anxiety Arthritis Breast cancer Cancer Depression Hypertension Mental disorder Myocardial infarction Skin cancer Surgical History Club foot History of back surgery History of tonsillectomy and adenoidectomy S/P insertion of spinal cord stimulator Social History Smoking Status: Current every day smoker tobacco type: e-cigarettes counseling given: provider counseling alcohol intake: never substance use type: marijuana what type of physical activity do you participate in: none ROS ROS ED Constitutional Constitutional ED: Denies chills or fever(s) Eyes Eyes: Denies blurry vision ENT ENT ED: Denies rhinorrhea or sore throat Cardiovascular Cardiovascular: Reports as per HPI Respiratory/Chest Respiratory/Chest: Denies cough, dyspnea or dyspnea on exertion Gastrointestinal Gastrointestinal: Denies abdominal pain, nausea or vomiting Genitourinary Genitourinary ED: Denies dysuria or hematuria Musculoskeletal Musculoskeletal: Denies arthralgias or back pain Integumentary Denies abscess Neurologic Neurologic: Denies headache(s) or paresthesias Psychiatric Psychiatric: Denies anxiety or depression EXAM Physical Exam Const Vital Signs: 06/30/22 13:22 06/30/22 14:22 06/30/22 14:22 Temperature 98.7 F Temperature Source Temporal Pulse Rate 87 64 Respiratory Rate 16 13 Blood Pressure 147/78 H 138/90 H Blood Pressure Mean 101 106 Pulse Ox 99 100 Oxygen Delivery Method Room Air Room Air Room Air 06/30/22 15:00 Temperature Temperature Source Pulse Rate 60 Respiratory Rate 11 L Blood Pressure 118/66 Blood Pressure Mean 83 Pulse Ox 98 Oxygen Delivery Method Room Air Positive well nourished General Appearance ED: NAD and other HEENT Reports moist mucous membranes atraumatic Eyes PERRL Chest Wall inspection of chest normal and palpation of chest normal Resp normal respiratory effort and clear to auscultation bilaterally Auscultation: Negative for rales, rhonchi or wheezes Cardio regular rate and regular rhythm Neuro oriented x3 and CN's II-XII intact bilaterally Sensorium / Orientation: awake and alert Psych mental status grossly normal Skin no rashes or lesions noted Heart Score History: Slightly/Non-Suspicious ECG: Normal Age: </= 45 years Risk Factors: 1 or 2 Risk Factors Troponin: </= Normal Limit Score: 1 MDM MDM MDM Narrative Medical decision making narrative: 32-year-old male presenting with chest pain. Differential includes but is not limited to ACS, PE, aortic dissection, pneumonia, pneumothorax, muscle strain, costochondritis. Patient declines any analgesia. HEART score 1. CBC to assess white blood cell count, hemoglobin and platelets, differential. BMP to assess renal function, electrolytes, glucose, anion gap. EKG, high-sensitivity troponin, chest x-ray to evaluate cardiopulmonary. Patient PERC negative. I think PE is highly unlikely. Equal symmetric breath sounds and chest wall rise as well so I do not think he has a pneumothorax. He is not describing ripping or tearing sensation to suggest a dissection. He does have some musculoskeletal component to it as when he moves his arm at does reproduce the pain. CBC shows no leukocytosis. Hemoglobin however stable. Platelets are normal. Renal function and electrolytes unremarkable. Glucose slightly elevated 119 without anion gap. High-sensitivity troponin is 3 and delta troponin is 3. EKG on my interpretation shows sinus rhythm at 62 bpm without sign of ectopy or ischemia. Chest x-ray my interpretation shows no acute process. At this point I feel the patient is stable for discharge home. He has been pain-free since has been here. Discussed follow-up with his private [facility] physician and return precautions. Impression: 1 chest pain Lab Data Labs: Laboratory Results - last 24 hr 06/30/22 06/30/22 06/30/22 13:25 13:25 16:30 WBC 4.7 RBC 4.88 Hgb 14.5 Hct 41.0 MCV 84.0 MCH 29.7 MCHC 35.4 RDW Std Deviation 37.2 RDW Coeff of Tate 12.3 Plt Count 197 MPV 11.5 Immature Gran % (Auto) 0.000 Neut % (Auto) 35.0 L Lymph % (Auto) 49.6 H [place] % (Auto) 11.0 H Eos % (Auto) 3.8 Baso % (Auto) 0.6 Absolute Neuts (auto) 1.7 L Absolute Lymphs (auto) 2.34 Nucleated RBC % 0 Sodium 135 L Potassium 3.8 Chloride 103 Carbon Dioxide 29.0 Anion Gap 3 L BUN 13 Creatinine 0.95 Estim Creat Clear Calc 115.26 Est GFR (MDRD) Af Amer 118 Est GFR (MDRD) Non-Af 98 BUN/Creatinine Ratio 13.7 Glucose 119 H Calcium 8.9 Troponin I High Sens 3 3 Radiography Diagnostic Testing: Clinical Impression(s) from Imaging Studies Chest X-Ray 06/30/22 14:50 IMPRESSION: No acute pulmonary process Electronically Signed: Leoncio Grajeda MD at 15:23 EDT , Discharge Plan Triage Chief Complaint: Chest Pain ED Provider: Feroz Pereyra Dx/Rx/DC Orders Instructions: ED Chest Pain, Noncardiac Prescriptions: No Action buprenorphine-naloxone [Suboxone] 8-2 mg film 1 film sublingual BID promethazine 25 mg tablet 25 mg PO TID PRN (Reason: nausea) Qty: 90 3RF buspirone 15 mg tablet 15 mg PO TID Label Comments: TAKE 1 TABLET BY MOUTH THREE TIMES DAILY Suboxone 8 mg PO/SL BID promethazine 25 mg suppository 25 mg NH Q6H PRN (Reason: nausea and vomiting) Qty: 12 3RF Primary Care Provider: Care Physician,No Primary Referrals: Care Physician,No Primary [Primary Care Provider] - Disposition Disposition: Home, Self Care
[2022-06-30 14:22] VITALS: BP 138/90; PULSE 64; RESP 13; O2SAT 100
[2022-06-30 14:26] VITALS: BMI 24.9
[2022-06-30] MEDS: 0.9% Normal Saline 1,000 ML 1000 ML IV (14:26)
[2022-06-30 14:29] LABS: Absolute Lymphocyte Count 2.34 X10^3/uL (0.83-4.51); Absolute Neutrophil Count 1.7 X10^3/uL (2.0-7.7); Basophil# 0.03 X10^3/uL; Basophil% 0.6 % (0-1); Eosinophil# 0.18 X10^3/uL; Eosinophils% 3.8 % (0-5); Hemoglobin 14.5 g/dL (13.0-16.5); Lymphocyte # 2.34 X10^3/ul (0.83-4.51); Lymphocyte % 49.6 % (19-41); Mean Corp Hgb Conc 35.4 g/dL (32-36); Mean Corpuscular Hgb 29.7 pg (27.0-32.0); Mean Platelet Vol. 11.5 fl (6.2-12.0); Monocyte# 0.52 X10^3/uL; NRBC Flagged by Analyzer 0 % (0-5); Neutrophil # 1.65 X10^3/uL (2.7-7.7); Platelet Count 197 K/mm3 (150-450); RBC Distribution Width CV 12.3 % (11.6-14.6); RBC Distribution Width SD 37.2 fl (35.1-43.9); Red Blood Count 4.88 M/mm3 (4.6-6.2); White Blood Count 4.7 K/mm3 (4.4-11.0)
[2022-06-30 14:48] LABS: Anion Gap 3 (5-15); BUN 13 mg/dL (7-18); BUN/Creat Ratio 13.7 RATIO (10-20); Calcium,Total 8.9 mg/dL (8.5-10.1); Chloride 103 mmol/L (98-107); Creatinine, Serum 0.95 mg/dL (0.70-1.30); EST Glomerular Filtration Rate 98 mL/min (>60); Est Glom Filt Rate - Afr Amer 118 mL/min (>60); Estimated Creatinine Clearance 115.26 ml/min; Glucose 119 mg/dL (74-106); Potassium 3.8 mmol/L (3.5-5.1); Sodium Level 135 mmol/L (136-145); Troponin-I HS (w/2H Reflex) 3 pg/mL (3.0-78.0)
--- NOTE | 2022-06-30 14:50 | RAD_ITS ---
STUDY: X-RAY CHEST REASON FOR EXAM: Male, 32 years old. Atypical chest pain TECHNIQUE: Single AP portable view of the chest. COMPARISON: 02/05/2020 FINDINGS: EKG leads overlie the chest. Spinal catheters noted over the mid and lower thoracic spine. The lungs are clear and expanded. There is no demonstrated pleural abnormality. Normal size heart. Normal mediastinum and mary ann. Normal visualized pulmonary arteries. Normal visualized aortic arch and descending thoracic aorta. Normal visualized thoracic spine. Normal visualized ribs, clavicles, and shoulders. There is no demonstrated abnormality of the visualized soft tissue structures of the upper abdomen. RAD/Chest 1 View (Portable) IMPRESSION: No acute pulmonary process Electronically Signed: Leocnio Grajeda MD at 15:23 EDT ,
[2022-06-30 15:00] VITALS: BP 118/66; PULSE 60; RESP 11; O2SAT 98
[2022-06-30 16:25] LABS: Reflex Troponin-HS? (from REC) Y
[2022-06-30 17:00] LABS: Troponin-I HS 3 pg/mL (3.0-78.0)
[2022-06-30 17:18] VITALS: RESP 16
== END 2022-06-30 17:19 | disposition home or self-care (01) ==
PROVIDERS: Emergency Provider Student in an Organized Health Care Education/Training Program; Visit Provider Student in an Organized Health Care Education/Training Program
DX: R07.9 Chest pain, unspecified (principal); F12.90 Cannabis use, unspecified, uncomplicated; F17.290 Nicotine dependence, other tobacco product, uncomplicated; F41.9 Anxiety disorder, unspecified; F32.A Depression, unspecified; Z79.899 Other long term (current) drug therapy
CPT/HCPCS: 71045; 80048; 84484; 85025; 93005; 96360; 99284; A4216

== ENCOUNTER 2023-07-15 09:37 | Emergency (ER) | payer MEDICARE, MEDICAID, SELFPAY ==
[2023-07-15 09:38] VITALS: BP 126/73; PULSE 85; RESP 16; TEMP 36.2; O2SAT 100; BMI 25.8
--- NOTE | 2023-07-15 09:47 | RAD_ITS ---
STUDY: X-RAY - RIGHT FOOT CLINICAL: Male, 33 years old. History of extensive surgical procedure in the foot. Pain following injury. TECHNIQUE: 3 view(s) of the foot. COMPARISON: Comparison is made with prior examination February 22, 2020. FINDINGS: The patient is status post fusion of the talocalcaneal joint as well as the first tarsometatarsal joint and first metatarsophalangeal joint. Normal second through fifth metatarsophalangeal joints. Normal interphalangeal joints and phalanges of the lesser toes. Mild soft tissue swelling. RAD/Foot min 3 Views IMPRESSION: Status post hindfoot fusion with 3 orthopedic screws and medial midfoot fusion with a metal plate with several screws. Stable fusion of the first metatarsophalangeal joint. No acute abnormality is seen. Electronically Signed: Lux Flannery MD at 10:14 EDT ,
--- NOTE | 2023-07-15 09:47 | EX.ED.DYSGE1 ---
HPI History of Present Illness Chief Complaint: Lower Extremity Injury Informant: patient Onset/Context/Timing Onset: Yesterday Narrative Narrative: Patient presents secondary to right ankle injury. He has a history of clubfoot and has had multiple surgeries on his right foot and ankle. He states his ankle is fused. Yesterday he went to kick a soccer ball at his daughter's soccer match, missed the ball and kicked the ground. He instantly had pain to his ankle and has not been able to weight-bear since that time. [facility] Medical History Anxiety Anxiety and depression Back pain Club foot Depression Encounter for screening for COVID-19 Former smoker GERD (gastroesophageal reflux disease) History of edema History of substance abuse Hypoglycemia Injury of back Insomnia Marijuana use Migraine headache Nausea and vomiting Neuropathy Substance abuse Wears glasses Weight loss Home Medications buprenorphine 8 mg-naloxone 2 mg sublingual film (Suboxone) 1 film sublingual BID 11/23/20 [History Last Taken Unknown] promethazine 25 mg rectal suppository 25 mg MA Q6H PRN nausea and vomiting #12 ea 07/01/21 [Rx Last Taken Unknown] buspirone 15 mg tablet 15 mg PO TID 07/15/21 [History Last Taken Unknown] promethazine 25 mg tablet 25 mg PO TID PRN nausea #90 tabs 09/19/21 [Rx Last Taken Unknown] Suboxone 8 mg PO/SL BID 06/30/22 [History Last Taken Unknown] Allergy/AdvReac Type Severity Reaction Status Date / Time Sulfa (Sulfonamide Allergy Unknown Verified 07/15/23 09:37 Antibiotics) morphine AdvReac Hives Verified 07/15/23 09:37 Family History Other Anxiety Arthritis Breast cancer Cancer Depression Hypertension Mental disorder Myocardial infarction Skin cancer Surgical History Club foot History of back surgery History of tonsillectomy and adenoidectomy S/P insertion of spinal cord stimulator Social History Smoking Status: Current every day smoker tobacco type: e-cigarettes alcohol intake: never substance use type: marijuana what type of physical activity do you participate in: none ROS ROS ED Constitutional Constitutional ED: Denies chills or fever(s) ENT ENT ED: Denies rhinorrhea or sore throat Cardiovascular Cardiovascular: Denies chest pain Respiratory/Chest Respiratory/Chest: Denies cough or dyspnea Gastrointestinal Gastrointestinal: Denies abdominal pain, nausea or vomiting Musculoskeletal Musculoskeletal: Reports extremity pain; Denies back pain Integumentary Denies Abrasions or rash Neurologic Neurologic: Denies headache(s) or weakness Allergic/Immunologic Allergic/Immunologic ED: Denies lip swelling or urticaria EXAM Physical Exam Const Vital Signs: 07/15/23 09:38 Temperature 97.1 F L Temperature Source Temporal Pulse Rate 85 Respiratory Rate 16 Blood Pressure 126/73 H Blood Pressure Mean 90 Pulse Ox 100 Oxygen Delivery Method Room Air Positive well nourished and well developed General Appearance ED: well developed HEENT Reports moist mucous membranes Eyes EOMs intact bilaterally Chest Wall inspection of chest normal and palpation of chest normal Resp normal respiratory effort and clear to auscultation bilaterally Cardio regular rate and regular rhythm GI non-tender Palpation: soft Extremity Extremity Narrative: Mild tenderness over the anterior right ankle. Minimal edema. No ecchymosis or abrasions. Good distal pulses. Can wiggle toes which he states is his neurofunction at baseline. Not able to flex or extend at the right ankle secondary to prior fusion. No tenderness at the knee or proximal fibula. Neuro oriented x3 Psych mental status grossly normal Skin no rashes or lesions noted MDM MDM MDM Narrative Medical decision making narrative: X-rays of the right foot and ankle obtained to evaluate for potential fracture. Differential diagnosis includes fracture, sprain, strain, contusion. Radiography Diagnostic Testing: Clinical Impression(s) from Imaging Studies Foot X-Ray 07/15/23 09:47 IMPRESSION: Status post hindfoot fusion with 3 orthopedic screws and medial midfoot fusion with a metal plate with several screws. Stable fusion of the first metatarsophalangeal joint. No acute abnormality is seen. Electronically Signed: Lux Flannery MD at 10:14 EDT , Ankle X-Ray 07/15/23 09:55 IMPRESSION: No acute abnormality is seen. Electronically Signed: Lux Flannery MD at 10:15 EDT , Treatment and Re-Evaluation :: Right foot and ankle x-rays per my interpretation reveal postoperative changes with no acute injury or fracture. Radiology interpretation reviewed and agrees. Test results discussed with the patient. He is relieved with these findings. He will follow-up with orthopedics if not improving as we did discuss he may still have a tendon or ligament injury that is not visible on x-rays. With patient having his ankle fused I do not think he needs a stirrup splint. He may weight-bear as tolerated. Discharge Plan Triage Chief Complaint: Lower Extremity Injury ED Provider: Acacia Carter Dx/Rx/DC Orders Clinical Impression: Sprain of ankle, right Instructions: ED Ankle Sprain (Adult) Prescriptions: No Action buprenorphine-naloxone [Suboxone] 8-2 mg film 1 film sublingual BID promethazine 25 mg tablet 25 mg PO TID PRN (Reason: nausea) Qty: 90 3RF buspirone 15 mg tablet 15 mg PO TID Patient Comments: TAKE 1 TABLET BY MOUTH THREE TIMES DAILY Suboxone 8 mg PO/SL BID promethazine 25 mg suppository 25 mg MA Q6H PRN (Reason: nausea and vomiting) Qty: 12 3RF Primary Care Provider: Care Physician,No Primary Referrals: Omid Wade DO [Med Staff - Active Staff] - 1 Week if not improving Care Physician,No Primary [Primary Care Provider] - Disposition Disposition: Home, Self Care
--- NOTE | 2023-07-15 09:55 | RAD_ITS ---
STUDY: X-RAY - RIGHT ANKLE REASON FOR EXAM: Male, 33 years old. Injury TECHNIQUE: 3 view(s) of the ankle. COMPARISON: None. FINDINGS: Normal visualized distal tibia and fibula. Normal medial and lateral malleoli. Normal tibiotalar articulation and ankle mortise. Status post hindfoot fusion as well as fusion of the first tarsometatarsal joint and first metatarsal phalangeal joint. The soft tissue structures are unremarkable. RAD/Ankle min 3 Views IMPRESSION: No acute abnormality is seen. Electronically Signed: Lux Flannery MD at 10:15 EDT ,
[2023-07-15 10:52] VITALS: BP 127/63; PULSE 54; RESP 16; TEMP 36.3; O2SAT 99
== END 2023-07-15 10:53 | disposition home or self-care (01) ==
PROVIDERS: Emergency Provider Emergency Medicine; Visit Provider Emergency Medicine
DX: S93.401A Sprain of unspecified ligament of right ankle, initial encounter (principal); F12.90 Cannabis use, unspecified, uncomplicated; F17.290 Nicotine dependence, other tobacco product, uncomplicated; X58.XXXA Exposure to other specified factors, initial encounter
CPT/HCPCS: 73610; 73630; 99282